=== PATIENT | female | born 1955 | race Asian ===

== ENCOUNTER 2018-03-07 11:26 | Outpatient (CLI) | payer OTHER | END 2018-03-07 19:14 | disposition home or self-care (01) | LOC: SRD 11:26 | PROVIDERS: ATTEND Family Medicine | DX: M16.12 Unilateral primary osteoarthritis, left hip (principal); I70.8 Atherosclerosis of other arteries; R91.8 Other nonspecific abnormal finding of lung field | CPT/HCPCS: 71046-TC; 72110 ==

== ENCOUNTER 2018-03-12 11:16 | Outpatient (CLI) | payer OTHER | END 2018-03-12 17:56 | disposition home or self-care (01) | LOC: SRD 11:16 | PROVIDERS: ATTEND Family Medicine | DX: M25.552 Pain in left hip (principal); R10.2 Pelvic and perineal pain | CPT/HCPCS: 72170-TC; 73502 ==